=== PATIENT | male | born 1955 | race Caucasian/White ===

== ENCOUNTER 2016-11-26 18:06 | Emergency (ER) | payer MEDICARE ==
[~2016-11-26] VITALS: Ht 195.6 cm; Wt 78.0 kg
[2016-11-26] MEDS ORDERED: KETOROLAC 30 MG/1 ML IVPush ONE (18:30)
[2016-11-26] MEDS ORDERED: SODIUM CHLORIDE 0.9% 1,000ML IVBOLUS ONE (18:30)
[2016-11-26] MEDS ORDERED: SODIUM CHLORIDE FLUSH 10ML SYR IVF ONE (18:30)
[2016-11-26] MEDS ORDERED: KETOROLAC 30 MG/1 ML ONE (18:49)
[2016-11-26 18:59] LABS: HEMOGLOBIN 17.3 g/dL (13.7-18.0)
[2016-11-26 19:08] LABS: ASPARTATE AMINO TRANSFERASE 92 U/L (15-37); BLOOD UREA NITROGEN 20 mg/dL (7-18)
[2016-11-26 20:50] VITALS: BP 119/68
== END 2016-11-26 21:24 | disposition home or self-care (01) ==
LOC: ED 20:58
DX: N28.9 Disorder of kidney and ureter, unspecified (principal); E11.65 Type 2 diabetes mellitus with hyperglycemia; J44.9 Chronic obstructive pulmonary disease, unspecified; M54.9 Dorsalgia, unspecified; X58.XXXA Exposure to other specified factors, initial encounter; Y93.89 Activity, other specified; Y99.8 Other external cause status; Y92.099 Unspecified place in other non-institutional residence as the place of occurrence of the external cause
CPT/HCPCS: 36415; 71010; 72110; 80053; 85025; 93005; 96361; 96374; 99285; J1885; J7030

== ENCOUNTER 2016-12-23 21:59 | Emergency (ER) | payer MEDICARE ==
[~2016-12-23] VITALS: Ht 195.6 cm; Wt 74.5 kg
[2016-12-23 21:59] VITALS: BP 118/78
[2016-12-23 22:57] LABS: BLOOD UREA NITROGEN 36 mg/dL (7-18)
[2016-12-23 23:02] LABS: ACETAMINOPHEN < 2 mcg/mL (10-30); ASPARTATE AMINO TRANSFERASE 91 U/L (15-37)
== END 2016-12-24 00:59 | disposition home or self-care (01) ==
LOC: ED 12-24 00:53
DX: F32.0 Major depressive disorder, single episode, mild (principal); F43.12 Post-traumatic stress disorder, chronic; J44.9 Chronic obstructive pulmonary disease, unspecified; E11.65 Type 2 diabetes mellitus with hyperglycemia; M54.9 Dorsalgia, unspecified; G89.29 Other chronic pain
CPT/HCPCS: 36415; 80053; 80307; 80329; 85025; 99284; G0480